=== PATIENT | female | born 1965 | race Caucasian/White ===

== ENCOUNTER 2021-03-09 20:20 | Emergency (ER) | payer MEDICARE, OTHER ==
[~2021-03-09 20:20] MED LIST: AMOXICILLIN500 MG PO; BENTYL 20MG TAB20 MG PO; CODEINE-GUAIFE473 ML PO; FLONASE 0.05% N16 GM; HEARTBURN PREVE20 MG PO; MOBIC15 MG PO; NAPROSYN500 MG PO; NAPROXEN500 MG PO; PROTONIX 40 MG40 M1 PO; SINGULAIR10 MG PO
[2021-03-09] MEDS ORDERED: DOXYCYCLINE HY100 MG PO (20:42)
== END 2021-03-09 20:50 | disposition home or self-care (01) ==
LOC: ER1 20:20
DX: S40.862A Insect bite (nonvenomous) of left upper arm, initial encounter (principal); S40.261A Insect bite (nonvenomous) of right shoulder, initial encounter; L03.114 Cellulitis of left upper limb; R03.0 Elevated blood-pressure reading, without diagnosis of hypertension; F17.290 Nicotine dependence, other tobacco product, uncomplicated; Z91.040 Latex allergy status; W57.XXXA Bitten or stung by nonvenomous insect and other nonvenomous arthropods, initial encounter
CPT/HCPCS: 99281

== ENCOUNTER 2021-05-06 16:35 | Emergency (ER) | payer MEDICARE, OTHER ==
[~2021-05-06 16:35] MED LIST changes: +DOXYCYCLINE HY100 MG PO
[2021-05-06] MEDS ORDERED: LODINE CAP 300300 MG PO (18:57)
[2021-05-06] MEDS ORDERED: VENTOLIN HFA 66.7 GM INH (18:57)
== END 2021-05-06 18:08 | disposition home or self-care (01) ==
LOC: ER1 16:35
DX: U07.1 COVID-19 (principal); Z88.8 Allergy status to other drugs, medicaments and biological substances; F17.290 Nicotine dependence, other tobacco product, uncomplicated
CPT/HCPCS: 0240U; 87081; 87880; 99283

== ENCOUNTER → 2021-12-19 | Outpatient (CLI) | payer MEDICARE, OTHER ==
[~2021-12-19] MED LIST changes: +LODINE CAP 300300 MG PO; +VENTOLIN HFA 66.7 GM INH
== END ==
LOC: MAMO 09:22
DX: Z12.31 Encounter for screening mammogram for malignant neoplasm of breast (principal)
CPT/HCPCS: 77063; 77067

== ENCOUNTER 2022-02-13 16:24 | Emergency (ER) | payer MEDICARE, OTHER | END 2022-02-13 19:35 | disposition home or self-care (01) | LOC: ER1 16:24 | DX: M17.0 Bilateral primary osteoarthritis of knee (principal) | CPT/HCPCS: 73564; 85652; 86140; 96374; 99283; J1885 ==

== ENCOUNTER 2022-03-19 16:43 | Emergency (ER) | payer MEDICARE, OTHER | END 2022-03-19 17:28 | disposition left against medical advice (07) | LOC: ER1 16:43 | DX: Z53.21 Procedure and treatment not carried out due to patient leaving prior to being seen by health care provider (principal) ==

== ENCOUNTER 2022-04-02 07:41 | Emergency (ER) | payer MEDICARE, OTHER ==
[2022-04-02 09:08] LABS: HEMOGLOBIN 13.4 gm/dl (12.3-15.3); RED BLOOD COUNT 4.28 M/UL (4.00-5.10); WHITE BLOOD COUNT 7.3 K/UL (4.5-11.0)
[2022-04-02 09:32] LABS: BUN/CREATININE RATIO 16 (0-10)
== END 2022-04-02 12:01 | disposition home or self-care (01) ==
LOC: ER1 07:41
PROVIDERS: Emergency Medicine
DX: M79.604 Pain in right leg (principal); Z51.81 Encounter for therapeutic drug level monitoring
CPT/HCPCS: 80048; 85025; 85610; 85730; 93971; 99284

== ENCOUNTER 2022-04-13 08:31 | Emergency (ER) | payer MEDICARE, OTHER ==
[2022-04-14] MEDS ORDERED: ERYTHROMYCIN O3.5 GM OU (08:42)
[2022-04-14] MEDS ORDERED: VALTREX1000 MG PO (08:42)
[2022-04-14] MEDS ORDERED: PERCOCET 5/325 T1 EA PO (09:16)
== END 2022-04-13 10:20 | disposition home or self-care (01) ==
LOC: ER1 08:31
DX: L23.7 Allergic contact dermatitis due to plants, except food (principal); F17.290 Nicotine dependence, other tobacco product, uncomplicated
CPT/HCPCS: 96372; 99282; J1100

== ENCOUNTER 2022-04-14 08:03 | Emergency (ER) | payer MEDICARE, OTHER ==
[2022-04-14] MEDS ORDERED: VALTREX1000 MG PO (08:42)
[2022-04-14] MEDS ORDERED: ERYTHROMYCIN O3.5 GM OU (08:42)
[2022-04-14] MEDS ORDERED: PERCOCET 5/325 T1 EA PO (09:16)
[2022-04-15] MEDS ORDERED: CEPHALEXIN500 MG PO (06:27)
[2022-04-15] MEDS ORDERED: ACYCLOVIR200 MG/5 M PO (06:27)
== END 2022-04-14 10:00 | disposition home or self-care (01) ==
LOC: ER1 08:03
DX: B02.9 Zoster without complications (principal); F17.290 Nicotine dependence, other tobacco product, uncomplicated
CPT/HCPCS: 99282

== ENCOUNTER 2022-04-15 05:26 | Emergency (ER) | payer MEDICARE, OTHER ==
[~2022-04-15 05:26] MED LIST changes: +ERYTHROMYCIN O3.5 GM OU; +PERCOCET 5/325 T1 EA PO; +VALTREX1000 MG PO
[2022-04-15] MEDS ORDERED: ACYCLOVIR200 MG/5 M PO (06:27)
[2022-04-15] MEDS ORDERED: CEPHALEXIN500 MG PO (06:27)
== END 2022-04-15 06:50 | disposition home or self-care (01) ==
LOC: ER1 05:26
DX: H05.221 Edema of right orbit (principal); F17.290 Nicotine dependence, other tobacco product, uncomplicated; W19.XXXA Unspecified fall, initial encounter
CPT/HCPCS: 99283